=== PATIENT | male | born 1985 | race Caucasian/White ===

== ENCOUNTER 2016-11-21 23:18 | Emergency (ER) | payer SELFPAY ==
[~2016-11-21] VITALS: Ht 180.3 cm; Wt 124.7 kg
[2016-11-21 23:39] VITALS: BP 142/69
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
== END 2016-11-22 01:45 | disposition home or self-care (01) ==
LOC: ER 23:18
DX: M79.672 Pain in left foot (principal); R22.42 Localized swelling, mass and lump, left lower limb
CPT/HCPCS: 73630; 99284